=== PATIENT | female | born 1985 | race Caucasian/White ===

== ENCOUNTER 2020-12-10 03:41 | Emergency (ER) | payer BC ==
[~2020-12-10] VITALS: Ht 147.3 cm; Wt 113.6 kg
--- NOTE | 2020-12-10 04:15 | PHYS DOC ---
Past Medical History Past Medical History: Hypertension Past Surgical History: , Other Additional Past Surgical Histo: KIDNEY STONE Smoking Status: Current Every Day Smoker Alcohol Use: None General Adult EDM: Chief Complaint: CHEST PAIN HPI: HPI: Patient is a 35 year old female with history of hypertension who presents with chest pain and dizziness. Onset this afternoon on and off. Patient described discomfort as a chest pressure/heaviness. 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 Patient thus pulled over, and came to the ER. Patient reports some nausea, but denies any vomiting. She denies any pain in the arm or any pain in the jaw. Patient denies any recent exposure to COVID-19, denies any respiratory symptoms. Patient is the main historian. Review of Systems: Review of Systems: Review of systems: Constitutional symptoms- No fever, no chills. Eyes- No Discharge, No Visual Loss Respiratory symptoms- No shortness of breath, No wheezing, No Dyspnea on Exertion Cardiovascular Systems; chest pressure, dizziness Gastrointestinal symptoms: NO abdominal pain, no nausea, no vomiting or diarrhea. Genitourinary symptoms: No dysuria. Musculoskeletal symptoms: No back pain No extremity pain. NEUROLOGICAL Symptoms: No headache, no generalized weakness; No focal Weakness Heart Score: C/O Chest Pain: Yes HEART Score for Chest Pain: HEART Score for Chest Pain Response (Comments) Value History Slighlty/Non-Suspicious 0 ECG Normal 0 Age < 45 0 Risk Factors 1 or 2 Risk Factors 1 Total 1 Risk Factors: Risk Factors: DM, Current or recent (<one month) smoker, HTN, HLP, family history of CAD, obesity. Risk Scores: Score 0 - 3: 2.5% MACE over next 6 weeks - Discharge Home Score 4 - 6: 20.3% MACE over next 6 weeks - Admit for Clinical Observation Score 7 - 10: 72.7% MACE over next 6 weeks - Early Invasive Strategies Current Medications: Current Medications Medications (Trade) Dose Ordered Sig/Haydee Start Time Stop Time Status Last Admin Dose Admin Sodium Chloride 1,000 ml @ 1,000 mls/hr 1X ONCE 12/10/20 04:15 12/10/20 05:14 UNV Physical Exam: PE: General: alert, no acute distress. Skin: warm, dry and intact. Head:: Normocephalic, atraumatic. Neck: Trachea midline. Eyes: EOMI, Normal conjunctiva, No drainage CARDIOVASCULAR: tachycardia RESPIRATORY: No respiratory distress Back: Full range of motion. MUSCULOSKELETAL: Full range of motion of bilateral upper and lower extremities. GASTROINTESTINAL: Abdomen soft without rebound or guarding. NEUROLOGICAL: Alert and noted to person, place and time. No neurological deficits observed Psychiatric: Cooperative. Normal judgment Current Patient Data: Vital Signs: Vital Signs Date Time Temp Pulse Resp B/P (MAP) Pulse Ox O2 Delivery O2 Flow Rate FiO2 12/10/20 03:46 98.7 111 20 163/90 (114) 100 Room Air 98.7 EKG: EKG: EKG heart rate [address] elevation no ST depression no acute ME Time performed 3:47 AM [] Radiology/Procedures: Radiology/Procedures: [] Course & Med Decision Making: Course & Med Decision Making Pertinent Labs and Imaging studies reviewed. (See chart for details) Patient evaluated. Labs, Radiology and EKG ordered. EKG tachycardic. Labs and Radiology pending. After evaluation nursing informed me that patient no longer wants to be seen. Patient unwilling to complete workup. Patient was signed out AMA. Romy Disclaimer: Romy Disclaimer: This electronic medical record was generated, in whole or in part, using a voice recognition dictation system. Departure Departure Impression: Primary Impression: Chest pain Disposition: AMA/ELJOSÉ LUIS/LWMARTY Referrals: WESTLEY LEON (PCP) DAR MATA DO Dec 10, 2020 04:15
[2020-12-10 04:17] VITALS: BP 172/87
[2020-12-10] MEDS ORDERED: IV NORMAL SALINE 1000ML BAG 1,000 ML IV ONE (04:30)
--- NOTE | 2020-12-10 04:45 | EKG ---
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
== END 2020-12-10 04:32 | disposition left against medical advice (07) ==
LOC: ER 03:41
DX: R07.89 Other chest pain (principal); R42 Dizziness and giddiness; R11.0 Nausea; I10 Essential (primary) hypertension; F17.200 Nicotine dependence, unspecified, uncomplicated; Z98.890 Other specified postprocedural states; Z87.442 Personal history of urinary calculi
CPT/HCPCS: 93005; 99283